=== PATIENT | female | born 1960 ===

== ENCOUNTER 2017-10-10 09:00 | Day surgery (SDC) | payer MEDICAID ==
[~2017-10-10 09:00] MED LIST: Lactated Ringers 1,000 ML IV SCH; Lidocaine 1%/Sod Bicarbonate in NS 8.4% 1 ML Syringe IDERM PRN; Propofol 200 MG/20 ML SDV ONE; Sodium Chloride 0.9% 10 ML Syringe FLUSH PRN
--- NOTE | 2017-10-10 09:27 | PCM.PREANE ---
Preanesthetic Assessment - Anesthesia/Transfusion/Family Hx Anesthesia History: No Prior Anesthesia (DAVID) Transfusion History: No Prior Transfusion(s) Intubation History: Unknown - Review of Systems General: No Symptoms Pulmonary: No Symptoms Cardiovascular: No Symptoms Gastrointestinal: No Symptoms Neurological: No Symptoms Other: Reports: None - Physical Assessment NPO Status Date: 10/09/17 NPO Status Time: 23:45 Pulse: 71 O2 Sat by Pulse Oximetry: 96 Respiratory Rate: 20 Blood Pressure: 153/64 Temperature: 97.6 C ASA Class: 2 Dentition: Reports: Normal Dentition Thyro-Mental Finger Breadths: 3 Mouth Opening Finger Breadths: 3 ROM/Head Extension: Full Lungs: Clear to Auscultation, Normal Respiratory Effort Cardiovascular: Regular Rate, Regular Rhythm - Allergies Allergies/Adverse Reactions: Allergies Allergy/AdvReac Type Severity Reaction Status Date / Time latex Allergy Rash Verified 10/07/17 10:24 liraglutide [From Victoza] AdvReac Nausea and Verified 10/07/17 10:32 Vomiting metformin AdvReac Diarrhea Verified 10/07/17 10:32 - Acknowledgements Anesthesia Type Planned: MAC Pt an Appropriate Candidate for the Planned Anesthesia: Yes Alternatives and Risks of Anesthesia Discussed w Pt/Guardian: Yes Pt/Guardian Understands and Agrees with Anesthesia Plan: Yes PreAnesthesia Questionnaire HEENT History: Reports: Impaired Vision, Other (See Below) Other HEENT History: wears glasses Cardiovascular History: Reports: High Cholesterol, Hypertension Respiratory History: Reports: Sleep Apnea (no CPAP), SOB (with exertion) Gastrointestinal History: Reports: None Genitourinary History: Reports: None LICSW History: Reports: Other (See Below) Other OB/BYN History: uterine fibroid, laparoscopy Musculoskeletal History: Reports: None, Arthritis ((R) knee) Neurological History: Reports: None Psychiatric History: Reports: None Endocrine/Metabolic History: Reports: Diabetes, Type II (BS 105 @ 0800), Hypoparathyroidism, Hypothyroidism Hematologic History: Reports: None Immunologic History: Reports: None Oncologic (Cancer) History: Reports: None Dermatologic History: Reports: None - Past Surgical History Head Surgeries/Procedures: Reports: None HEENT Surgical History: Reports: None Cardiovascular Surgical History: Reports: None Respiratory Surgical History: Reports: None GI Surgical History: Reports: Colonoscopy, EGD, Other (See Below) Other GI Surgeries/Procedures: liver biopsy Female Surgical History: Reports: Tubal Ligation, Other (See Below) ( laparoscopy, uterine fibroid embolization, endometrial ablation) Endocrine Surgical History: Reports: Thyroidectomy Neurological Surgical History: Reports: None Musculoskeletal Surgical History: Reports: None Oncologic Surgical History: Reports: None Dermatological Surgical History: Reports: None - SUBSTANCE USE Smoking Status *Q: Never Smoker Recreational Drug Use History: No - HOME MEDS Home Medications: Home Meds Ascorbic Acid [Vitamin C] 500 mg PO DAILY 10/07/17 [History] Ca Carbonate/Vitamin D3/Vit K [Calcium + D Soft Chewable Tab] 1 tab PO DAILY [History] Calcitriol 0.5 mcg PO TID 10/07/17 [History] Gluc/MSM/C/[place]/Manganese/Lacy [Joint Support Complex Softgel] 1 tab PO DAILY [History] Multivitamin [Daily Multiple Vitamin] 1 tab PO DAILY 10/07/17 [History] Simvastatin [Zocor] 10 mg PO DAILY 10/07/17 [History] SitaGLIPtin [Januvia] 50 mg PO DAILY 10/07/17 [History] Valsartan/Hydrochlorothiazide [Valsartan-Hctz 160-25 mg Tab] 1 tab PO DAILY [History] glipiZIDE [Glipizide ER] 5 mg PO DAILY 10/07/17 [History] - CURRENT (IN HOUSE) MEDS Current Meds: Current Medications Lactated Ringer's (Ringers, Lactated) 1,000 mls @ 125 mls/hr IV ASDIRECTED KULDIP Stop: 10/10/17 23:00 Lidocaine/Sodium Bicarbonate (Buffered Lidocaine 1% In Ns 8.4%) 0.25 ml IDERM ONETIME PRN PRN Reason: Prior to IV Start Stop: 10/10/17 18:00 Sodium Chloride (Saline Flush) 10 ml FLUSH ASDIRECTED PRN PRN Reason: Keep Vein Open Stop: 10/10/17 18:00 Discontinued Medications Propofol (Diprivan 20 Ml) Confirm Administered Dose 200 mg .ROUTE .STK-MED ONE Stop: 10/10/17 07:52
[2017-10-10] MEDS ORDERED: Ondansetron 4 MG/2 ML SDV ONE (10:57)
[2017-10-10] MEDS ORDERED: Propofol 200 MG/20 ML SDV ONE ×2 (10:57→11:13)
[2017-10-10] MEDS ORDERED: Lidocaine 1% 2 ML ONE ×2 (11:01)
--- NOTE | 2017-10-10 11:26 | PCM.OPNOTE ---
- General Post-Op/Procedure Note Date of Surgery/Procedure: 10/10/17 Operative Procedure(s): colonoscopy to cecum with polypectomy Pre Op Diagnosis: family hx of colon cancer and personal history of colonic polyp Post-Op Diagnosis: Same Anesthesia Technique: MAC Primary Surgeon: Casey Xavier EBL in mLs: 0 Complications: None Condition: Good
--- NOTE | 2017-10-10 11:28 | PCM48HPAN ---
Post Anesthesia Note - EVALUATION WITHIN 48HRS OF ANESTHETIC Vital Signs in Normal Range: Yes Patient Participated in Evaluation: Yes Respiratory Function Stable: Yes Airway Patent: Yes Cardiovascular Function Stable: Yes Hydration Status Stable: Yes Pain Control Satisfactory: Yes Nausea and Vomiting Control Satisfactory: Yes Pulse Rate: 71 Resp Rate: 20 Temperature: 97.6 C Blood Pressure: 153/64 - COMMENTS/OBSERVATIONS Free Text/Narrative:: VSS no c/o, rests quietly, HOB elevated, report, transfer care
--- NOTE | 2017-10-11 07:04 | OR ---
DATE OF OPERATION: 10/10/2017 SURGEON: Casey Xavier MD PREOPERATIVE DIAGNOSIS: Family history of colon cancer, personal history of colonic polyps. POSTOPERATIVE DIAGNOSIS: Family history of colon cancer, personal history of colonic polyps. OPERATION PERFORMED: Surveillance colonoscopy with polypectomy. FINDINGS: A 1 cm polyp without a stalk in the ascending colon near the hepatic flexure, which was completely removed, retrieved, and sent to pathology. There were no angiodysplasias, large tumor masses, ulcerations, diverticulum, or hemorrhoids. DESCRIPTION OF PROCEDURE: The patient was taken to the endoscopy room, placed in a supine position, connected to monitoring equipment, given IV sedation, placed in the left lateral position. Perianal area was inspected and it was normal. Rectal exam showed good sphincter tone. A video Olympus colonoscope was then introduced into the rectum and threaded up without problem to the cecum, where the appendicular orifice and ileocecal valve was noted. Prep was excellent. [place] Cleansing Score grade A throughout the colon. The scope was slowly withdrawn showing the cecum, ascending colon, transverse colon, descending colon, sigmoid colon, and rectum. Retroflexed view was done. At the ascending colon near hepatic flexure, a polyp was noted as described that was lassoed with cautery snare, completely removed, and retrieved and sent to pathology. The patient tolerated the procedure, sent to recovery room in a stable condition, and will be followed up in the clinic. ANESTHESIA: ESTIMATED BLOOD LOSS: MMODAL /[id number]
== END 2017-10-10 12:22 | disposition home or self-care (01) ==
LOC: JD.SDS 09:00
PROVIDERS: ATTEND Surgery
DX: Z12.11 Encounter for screening for malignant neoplasm of colon (principal); D12.2 Benign neoplasm of ascending colon; E11.9 Type 2 diabetes mellitus without complications; I10 Essential (primary) hypertension; E20.0 Idiopathic hypoparathyroidism; E89.0 Postprocedural hypothyroidism; E78.00 Pure hypercholesterolemia, unspecified; Z86.010 Personal history of colon polyps; Z79.84 Long term (current) use of oral hypoglycemic drugs; Z79.899 Other long term (current) drug therapy; Z80.0 Family history of malignant neoplasm of digestive organs; Z91.040 Latex allergy status; Z88.8 Allergy status to other drugs, medicaments and biological substances
CPT/HCPCS: 45385; 88305; J2001; J2405; J7120; 00812; J2704